=== PATIENT | female | born 1965 | race Hispanic/Latino ===

== ENCOUNTER 2017-11-27 13:13 | Emergency (ER) | payer OTHER ==
[~2017-11-27] VITALS: Ht 152.4 cm; Wt 72.6 kg
[~2017-11-27 13:13] MED LIST: FIORICET 50-301 EACH PO; IMITREX50 M1 PO; LEVSIN-SL0.125 MG SL; ZOFRAN ODT4 M1 SL
[2017-11-27 13:15] VITALS: BP 152/94
[2017-11-27] MEDS ORDERED: TESSALON PERLE100 M1 PO (14:52)
[2017-11-27] MEDS ORDERED: ZITHROMAX250 M2 PO (14:52)
--- NOTE | 2017-11-27 14:53 | ED THROAT/DENTAL COMPLAINT ---
History of Present Illness General Chief Complaint: Sore Throat, Dental Pain Stated Complaint: SORE THROAT Source: patient, old records Exam Limitations: no limitations Vital Signs & Intake/Output Vital Signs & Intake/Output Vital Signs Date Time Temp Pulse Resp B/P B/P Pulse O2 O2 Flow FiO2 Mean Ox Delivery Rate 11/27 1315 98.3 117 18 152/94 95 Room Air Room Air Allergies Coded Allergies: Sulfa (Sulfonamide Antibiotics) (ANAPHYLAXIS 06/17/17) amoxicillin (From AUGMENTIN) (HIVES 06/17/17) clavulanic acid (From AUGMENTIN) (HIVES 06/17/17) Uncoded Allergies: IV CONTRAST (HIVES 06/17/17) Reconcile Medications Azithromycin (Zithromax) 250 MG TABLET 1 DP PO AD PHARYNGITIS 2 the first day followed by 1 for days 2-5 Benzonatate (Tessalon Perle) 100 MG CAPSULE 1 CAP PO TID PRN COUGH Butalb/Acetaminophen/Caffeine (Fioricet 50-300-40 MG Capsule) 50 MG-300 MG-40 MG CAPSULE 1-2 TAB PO Q6P PRN headache Hyoscyamine Sulfate (Levsin-Sl) 0.125 MG TAB.SUBL 1-2 TAB SL Q4P PRN abdominal cramps Ondansetron (Zofran Odt) 4 MG TAB.RAPDIS 1 TAB SL TID PRN nausea Sumatriptan Succinate (Imitrex) 50 MG TABLET 1 TAB PO DAILY PRN HEADACHE ( Reported) Triage Note: TRIAGE: 52 Y/O FEMALE PRESENTS C/O SORE THROAT 07/06 SINCE MONDAY. * REQUESTING PCP REFERRAL. * STREP SWAB SENT FROM TRIAGE. Triage Nurses Notes Reviewed? yes HPI: Patient presents with a nonproductive cough, burning sensation to her throat and laryngitis all worsening since Monday. Positive chills but no fevers. No nausea or vomiting. No shortness of breath. No chest pain or chest tightness. Pain is constant. There is no radiation. There are no aggravating or mitigating factors. Past History Travel History Traveled to [place] past 21 day No Medical History Any Pertinent Medical History? see below for history Neurological: migraine Musculoskeletal: arthritis and chronic pain Surgical History Surgical History: non-contributory Psychosocial History What is your primary language Slovenian Tobacco Use: Never used ETOH Use: occasional use Illicit Drug Use: denies illicit drug use Family History Hx Contributory? No Review of Systems Review of Systems Constitutional: Reports: see HPI, chills. EENTM: Reports: see HPI, throat pain. Respiratory: Reports: see HPI, cough. Cardiovascular: Reports: no symptoms. GI: Reports: no symptoms. Neurological/Psychological: Reports: no symptoms. Immunologic/Allergic: Reports: no symptoms. Physical Exam Physical Exam General Appearance: well developed/nourished, alert, awake Head: atraumatic, normal appearance Eyes: Bilateral: PERRL, EOMI. Mouth/Throat: tonsillar exudate, tonsillar swelling Neck: lymphadenopathy (R), lymphadenopathy (L) Cardiovascular/Respiratory: normal breath sounds, normal peripheral pulses, regular rate/rhythm, no respiratory distress Neurologic/Psych: no motor/sensory deficits, awake, alert, oriented x 3, normal gait, normal mood/affect Core Measures ACS in differential dx? No Sepsis Present: No Sepsis Focused Exam Completed? No Progress Differential Diagnosis: strep pharyngitis Plan of Care: Orders Procedure Date/time Status THROAT CULTURE W/QUICK STREP 11/27 1318 Active Departure Departure Disposition: HOME OR SELF CARE Condition: Stable Clinical Impression Primary Impression: Pharyngitis Qualifiers: Pharyngitis/tonsillitis etiology: unspecified etiology Qualified Code: J02.9 - Acute pharyngitis, unspecified Referrals: Patient Has No Primary Care Dr (PCP/Family) Additional Instructions: DRINK PLENTY FLUIDS RETURN IF SYMPTOMS WORSEN OR FOR ANY CONCERNS Departure Forms: Customer Survey General Discharge Information Prescriptions: Current Visit Scripts Azithromycin (Zithromax) 1 DP PO AD #6 TAB 2 the first day followed by 1 for days 2-5 Benzonatate (Tessalon Perle) 1 CAP PO TID PRN COUGH #30 CAP
== END 2017-11-27 14:56 ==
LOC: ERH 13:13
DX: J02.9 Acute pharyngitis, unspecified (principal)

== ENCOUNTER 2017-12-21 11:06 | Emergency (ER) | payer OTHER ==
[~2017-12-21] VITALS: Ht 152.4 cm; Wt 72.6 kg
[~2017-12-21 11:06] MED LIST changes: +AMLODIPINE BESYL5 M1 PO; +BUTALB-ACETAMI1 EACH PO; +CLONIDINE HCL0.1 MG PO; +FLUTICASONE PRO16 GM NASB; +LORATADINE10 M1 PO; +LYRICA100 M1 PO; +OXYCODONE-ACET1 EACH PO; +PERCOCET 5-3251 EACH PO; +PRAVASTATIN SOD40 M2 PO; +TESSALON PERLE100 M1 PO; +VALTREX1000 MG PO; +ZITHROMAX250 M2 PO
--- NOTE | 2017-12-21 15:42 | ED GENERAL ADULT ---
See Addendum History of Present Illness General Chief Complaint: General Adult Stated Complaint: SHINGLES/PAIN/PT HAS MANYCOMPLAINTS Source: patient Exam Limitations: no limitations Vital Signs & Intake/Output Vital Signs & Intake/Output Vital Signs Date Time Temp Pulse Resp B/P B/P Pulse O2 O2 Flow FiO2 Mean Ox Delivery Rate 12/21 1435 97.8 99 20 160/97 96 Room Air 12/21 1109 97.8 115 20 166/85 93 Room Air Room Air Allergies Coded Allergies: Sulfa (Sulfonamide Antibiotics) (ANAPHYLAXIS 12/21/17) amoxicillin (From AUGMENTIN) (HIVES 12/21/17) clavulanic acid (From AUGMENTIN) (HIVES 12/21/17) Uncoded Allergies: IV CONTRAST (HIVES 06/17/17) Reconcile Medications Amlodipine Besylate 5 MG TABLET 1 TAB PO DAILY HTN (Reported) Butalb/Acetaminophen/Caffeine (Ywhszk-Qfdqslfx-Bjkb 50-325-40) 50 MG-325 MG-40 MG TABLET 1 TAB PO DAILY PRN MIGRAINE (Reported) Clonidine HCl 0.1 MG TABLET 1 TAB PO TID HTN (Reported) Fluticasone Propionate 50 MCG/ACTUATION SPRAY.SUSP 2 SPRAY NASB DAILY ALLERGIES (Reported) Lidocaine 5 % ADH..PATCH 1 PAT TOP DAILY Pain Loratadine 10 MG TABLET 1 TAB PO DAILY ALLERGIES (Reported) Oxycodone HCl/Acetaminophen (Oxycodone-Acetaminophen 5-325) 5 MG-325 MG TABLET 1 TAB PO 4XDP PAIN (Reported) Oxycodone HCl/Acetaminophen (Percocet 5-325 MG Tablet) 5 MG-325 MG TABLET 1 TAB PO BID PRN PAIN Pravastatin Sodium 40 MG TABLET 1 TAB PO DAILY HPL (Reported) Prednisone 20 MG TABLET 1 TAB PO BID Neuropathic pain Pregabalin (Lyrica) 100 MG CAPSULE 2 CAP PO BID CHRONIC PAIN Valacyclovir HCl (Valtrex) 1,000 MG TABLET 1 TAB PO TID SHINGLES Triage Note: PT TO ED FOR C/C OF SHINGLES RASH X 2 WEEKS, SEEN AND TREATED HERE FOR IT, BUT PAIN NOT RELIEVED WITH MEDS PRESCRIBED. ALSO, PT'S GRANDSON HAS THE FLU AND PT THINKS SHE HAS THE FLU TOO. COMPLAINS BODY ACHES, DIARRHEA, NONPRODUCTIVE COUGH, CHILLS X 3 DAYS. Triage Nurses Notes Reviewed? yes HPI: This is a 52-year-old woman with past medical history of recent diagnosis shingles who presented to the emergency room complaining of pain. Pain is on the left side of the chest at the areas of shingles lesion; the lesions are crusted and dry; pain is sharp and electric radiating to left shoulder. Worsens with moving of her extremity. Patient denies any fever, chills, shortness of breath, palpitation, lightheadedness, dizziness, nausea, vomiting. Past History Travel History Traveled to [place] past 21 day No Medical History Any Pertinent Medical History? see below for history Neurological: migraine Musculoskeletal: arthritis and chronic pain Surgical History Surgical History: non-contributory Psychosocial History What is your primary language Paraguayan Tobacco Use: Never used ETOH Use: denies use Illicit Drug Use: denies illicit drug use Family History Hx Contributory? No Review of Systems Review of Systems Constitutional: Reports: see HPI. Cardiovascular: Reports: no symptoms. GI: Reports: no symptoms. Genitourinary: Reports: no symptoms. Musculoskeletal: Reports: no symptoms. Skin: Reports: no symptoms, change in skin color, lesions. All Other Systems: Reviewed and Negative Physical Exam Physical Exam General Appearance: well developed/nourished, no apparent distress, alert, mild distress Extremities: normal inspection, normal capillary refill Skin: intact, rash Core Measures ACS in differential dx? No CVA/TIA Diagnosis: No Sepsis Present: No Sepsis Focused Exam Completed? No Diagram Body: 1) shingles lesions Progress Differential Diagnoses I considered the following diagnoses in my evaluation of the patient: [ post- herpethic neurpapthic pain] Plan of Care: Orders Procedure Date/time Status RAPID VIRAL INFLUENZA A 12/21 1116 Complete Microbiology 12/21 1117 NASOPHARYN: Influenza Virus A & B Rapid Smear - COMP Initial ED EKG: none Departure Departure Disposition: HOME OR SELF CARE Condition: Stable Clinical Impression Primary Impression: Neuropathic pain Referrals: Philippe Melgoza MD (PCP/Family) Departure Forms: Customer Survey General Discharge Information Prescriptions: Current Visit Scripts Lidocaine 1 PAT TOP DAILY #5 PAT Prednisone 1 TAB PO BID #10 TAB Pregabalin (Lyrica) 2 CAP PO BID #60 CAP Critical Care Note Critical Care Note Critical Care Time: non-applicable ED Attending Observation Initial Observation Note: I have seen and personally examined LUZ LUDWIG on 12/21/17 at 1542. I agree with the current emergency department documentation. The disposition (admission or discharge) is uncertain at this time, she needs a period of observation for the following reason(s): The ED Nurse caring for this patient has been personally informed as to what the patient is being observed for. Observation Re-Evaluation: I have reevaluated LUZ LUDWIG on 12/21/17 at 1542. The physical findings that support the continued need to observe this patient include . Observation Discharge: I have reevaluated LUZ LUDWIG on 12/21/17 at 1542. The patient is: ([x]): Stable for discharge (): To be admitted to Nursing Floor (): To be placed in Observation on Nursing Floor (): For transfer to other facility The patient was being observed for As a result of that observation, I have determined .
[2017-12-21] MEDS ORDERED: PREDNISONE20 M1 PO (15:46)
[2017-12-21] MEDS ORDERED: LIDOCAINE1 EACH TOP (15:46)
[2017-12-21] MEDS ORDERED: LYRICA100 M1 PO (15:51)
[2017-12-21 16:14] VITALS: BP 180/99
== END 2017-12-21 16:16 ==
LOC: ERH 11:06
DX: G62.9 Polyneuropathy, unspecified (principal)
CPT/HCPCS: 87804; 87804-59